=== PATIENT | male | born 1975 | race Hispanic/Latino ===

== ENCOUNTER 2018-06-23 16:28 | Emergency (ER) | payer OTHER, SELFPAY ==
[2018-06-23 17:44] LABS: Absolute Lymphocytes (CBC) 1.9 K/uL (0.7-4.9); Absolute Monocytes 0.4 K/uL (0.1-1.3); Basophils % 0.5 % (0-1.3); Eosinophils % 1.1 % (0-4.4); Hematocrit 43.9 % (39.6-49.0); Lymphocytes % 34.6 % (15.3-44.8); MPV 8.5 fL (7.6-11.3); Monocytes % 7.8 % (3.3-12.3); RBC Red Blood Cell Count 4.97 M/uL (4.33-5.43)
[2018-06-23 18:39] LABS: ALT/SGPT 42 U/L (12-78); AST/SGOT 17 U/L (15-37); Albumin 3.7 g/dL (3.4-5.0); BUN Blood Urea Nitrogen 10 mg/dL (7-18); Bicarbonate 28 mmol/L (21-32); Bilirubin Direct < 0.1 mg/dL (0-0.2); Glucose Level 92 mg/dL (74-106); Lipase 127 U/L (73-393); Potassium 4.3 mmol/L (3.5-5.1); Sodium Level 142 mmol/L (136-145)
[2018-06-23 18:40] LABS: Alkaline Phosphatase 98 U/L (45-117); Bilirubin Total 0.3 mg/dL (0.2-1.0); Protein, Total 7.7 g/dL (6.4-8.2)
--- NOTE | 2018-06-23 19:11 | RAD REPORT ---
EXAM DESCRIPTION: CTAbdomen Pelvis W Contrast - 06/23/2018 6:59 pm CLINICAL HISTORY: Abdominal pain. ABD PAIN COMPARISON: No comparisons TECHNIQUE: Biphasic CT imaging of the abdomen and pelvis was performed with 100 ml non-ionic IV cont rast. All CT scans are performed using dose optimization technique as appropriate and may include automated exposure control or mA/KV adjustment according to patient size. FINDINGS: The lung bases are clear. The liver, spleen, pancreas, adrenal glands and kidneys are within normal limits. No bowel obstruction, free air, free fluid or abscess. The appendix is normal. No evidence of signi ficant lymphadenopathy. No suspicious bony findings. IMPRESSION: No acute intra-abdominal or pelvic finding.
--- NOTE | 2018-06-23 19:57 | EDPHYS ---
Physician Documentation [facility] Name: Kulwinder Rivera Age: 42 yrs Sex: Male : 1975 Arrival Date: 06/23/2018 Time: 16:31 Bed 23 Private MD: ED Physician Feliberto Romo HPI: 06/23 18:14 This 42 yrs old Male presents to ER via Ambulatory with complaints of gs Abdominal Pain. 18:14 The patient presents with abdominal pain that is diffuse. Onset: The symptoms/episode gs began/occurred 6 month(s) ago. Associated signs and symptoms: Pertinent negatives: nausea and vomiting, diarrhea. The symptoms are described as crampy. Modifying factors: The symptoms are alleviated by nothing, the symptoms are aggravated by nothing. Severity of pain: At its worst the pain was moderate in the emergency department the pain is unchanged. The patient has experienced similar episodes in the past, chronically. The patient has not recently seen a physician. Historical: - Allergies: 17:12 No Known Allergies; la1 - Home Meds: 17:12 None [Active]; la1 - PMHx: 17:12 None; la1 - PSHx: 17:12 None; la1 - Immunization history:: Adult Immunizations up to date. - Social history:: Smoking status: Patient/guardian denies using tobacco. - Ebola Screening: : No symptoms or risks identified at this time. ROS: 18:14 All other systems are negative. gs Exam: 18:14 Head/Face: Normocephalic, atraumatic. Eyes: Pupils equal round and reactive to light, gs extra-ocular motions intact. Lids and lashes normal. Conjunctiva and sclera are non-icteric and not injected. Cornea within normal limits. Periorbital areas with no swelling, redness, or edema. ENT: Nares patent. No nasal discharge, no septal abnormalities noted. Tympanic membranes are normal and external auditory canals are clear. Oropharynx with no redness, swelling, or masses, exudates, or evidence of obstruction, uvula midline. Mucous membranes moist. Neck: Trachea midline, no thyromegaly or masses palpated, and no cervical lymphadenopathy. Supple, full range of motion without nuchal rigidity, or vertebral point tenderness. No Meningismus. Chest/axilla: Normal chest wall appearance and motion. Nontender with no deformity. No lesions are appreciated. Cardiovascular: Regular rate and rhythm with a normal S1 and S2. No gallops, murmurs, or rubs. Normal PMI, no JVD. No pulse deficits. Respiratory: Lungs have equal breath sounds bilaterally, clear to auscultation and percussion. No rales, rhonchi or wheezes noted. No increased work of breathing, no retractions or nasal flaring. Back: No spinal tenderness. No costovertebral tenderness. Full range of motion. Skin: Warm, dry with normal turgor. Normal color with no rashes, no lesions, and no evidence of cellulitis. MS/ Extremity: Pulses equal, no cyanosis. Neurovascular intact. Full, normal range of motion. Neuro: Awake and alert, GCS 15, oriented to person, place, time, and situation. Cranial nerves II-XII grossly intact. Motor strength 5/5 in all extremities. Sensory grossly intact. Cerebellar exam normal. Normal gait. 18:14 Constitutional: The patient appears alert, awake. 18:14 Abdomen/GI: Palpation: mild abdominal tenderness, in all quadrants, rebound tenderness, is not appreciated. Vital Signs: 17:11 BP 133 / 90; Pulse 84; Resp 16; Temp 98.4; Pulse Ox 98% on R/A; Weight 108.86 kg; la1 Height 6 ft. 0 in. (182.88 cm); Pain 5/10; 20:05 BP 137 / 74; Pulse 81; Resp 16; Pulse Ox 98% on R/A; la1 17:11 Body Mass Index 32.55 (108.86 kg, 182.88 cm) la1 MDM: 17:22 Patient medically screened. gs 18:14 Differential diagnosis: cholecystitis, diverticulitis, non-specific abd pain, gs pancreatitis, Peptic Ulcer Disease. Data reviewed: vital signs, nurses notes, lab test result(s), radiologic studies. Response to treatment: the patient's symptoms have mildly improved after treatment. 19:56 Counseling: I had a detailed discussion with the patient and/or guardian regarding: the kb historical points, exam findings, and any diagnostic results supporting the discharge/admit diagnosis, lab results, radiology results, the need for outpatient follow up, a family practitioner, a senior executive assistant, to return to the emergency department if symptoms worsen or persist or if there are any questions or concerns that arise at home. 06/23 17:26 Order name: Basic Metabolic Panel 06/23 17: Order name: CBC with Diff; Complete Time: 19:00 06/23 17: Order name: Hepatic Function; Complete Time: 19:00 06/23 17: Order name: Lipase; Complete Time: 19:00 06/23 17:26 Order name: CT Abd/Pelvis - W/Contrast; Complete Time: 19:45 06/23 17:27 Order name: Basic Metabolic Panel; Complete Time: 19:00 EDFL 06/23 17: Order name: IV Saline Lock; Complete Time: 17:39 06/23 17: Order name: Labs collected and sent; Complete Time: 17:39 Administered Medications: No medications were administered Disposition: 06/23/18 19:56 Discharged to Home. Impression: Generalized abdominal pain. - Condition is Stable. - Discharge Instructions: Abdominal Pain, Adult, [id number]. - Prescriptions for Bentyl 20 mg Oral Tablet - take 1 tablet by ORAL route every 6 hours As needed; 20 tablet. - Medication Reconciliation Form, Thank You Letter, Antibiotic Education, Prescription Opioid Use, Work release form form. - Follow up: Private Physician; When: 2 - 3 days; Reason: Recheck today's complaints, Continuance of care, Re-evaluation by your physician. Follow up: Emergency Department; When: As needed; Reason: Worsening of condition. Signatures: Dispatcher [employer] EDFL Racheal Lombardi, MUSHROOM CUTTER-C MUSHROOM CUTTER-Ckb Tyson Arvizu PA PA jmm Attema, Lee, RN RN la1 Feliberto Romo MD MD Corrections: (The following items were deleted from the chart) 20:06 19:56 06/23/2018 19:56 Discharged to Home. Impression: Generalized abdominal pain. la1 Condition is Stable. Forms are Medication Reconciliation Form, Thank You Letter, Antibiotic Education, Prescription Opioid Use. Follow up: Private Physician; When: 2 - 3 days; Reason: Recheck today's complaints, Continuance of care, Re-evaluation by your physician. Follow up: Emergency Department; When: As needed; Reason: Worsening of condition. kb
--- NOTE | 2018-06-23 19:57 | ER ---
Nurse's Notes [facility] Name: Kulwinder Rivera Age: 42 yrs Sex: Male : 1975 Arrival Date: 06/23/2018 Time: 16:31 Bed 23 Private MD: Diagnosis: Generalized abdominal pain Presentation: 06/23 17:10 Presenting complaint: Patient states: LLQ/RUQ abd pain for greater than one year, pt la1 states that pain is a little worse today, denies N/V/D or fevers. Has not taken any medications at home. Transition of care: patient was not received from another setting of care. Onset of symptoms was June 23, 2018. Risk Assessment: Do you want to hurt yourself or someone else? Patient reports no desire to harm self or others. Initial Sepsis Screen: Does the patient meet any 2 criteria? No. Patient's initial sepsis screen is negative. Does the patient have a suspected source of infection? No. Patient's initial sepsis screen is negative. Care prior to arrival: None. 17:10 Method Of Arrival: Ambulatory la1 17:10 Acuity: RAMONA 3 la1 Historical: - Allergies: 17:12 No Known Allergies; la1 - Home Meds: 17:12 None [Active]; la1 - PMHx: 17:12 None; la1 - PSHx: 17:12 None; la1 - Immunization history:: Adult Immunizations up to date. - Social history:: Smoking status: Patient/guardian denies using tobacco. - Ebola Screening: : No symptoms or risks identified at this time. Screenin:12 Abuse screen: Denies threats or abuse. Nutritional screening: No deficits noted. la1 Tuberculosis screening: No symptoms or risk factors identified. Fall Risk None identified. Assessment: 17:13 General: Appears in no apparent distress. Behavior is calm, cooperative. Pain: la1 Complains of pain in right upper quadrant and left lower quadrant Pain currently is 5 out of 10 on a pain scale. Neuro: Level of Consciousness is awake, alert, obeys commands, Oriented to person, place, time, situation. Cardiovascular: Capillary refill < 3 seconds Patient's skin is warm and dry. Respiratory: Airway is patent Respiratory effort is even, unlabored, Respiratory pattern is regular, symmetrical, Breath sounds are clear bilaterally. GI: Abdomen is round non-distended, Bowel sounds present X 4 quads. Abd is soft and non tender X 4 quads. : No signs and/or symptoms were reported regarding the genitourinary system. 18:46 Reassessment: Patient appears in no apparent distress at this time. No changes from la1 previously documented assessment. Patient and/or family updated on plan of care and expected duration. Pain level reassessed. Patient is alert, oriented x 3, equal unlabored respirations, skin warm/dry/pink. 19:44 Reassessment: Patient appears in no apparent distress at this time. No changes from la1 previously documented assessment. Patient and/or family updated on plan of care and expected duration. Pain level reassessed. Patient is alert, oriented x 3, equal unlabored respirations, skin warm/dry/pink. 20:05 Reassessment: Patient appears in no apparent distress at this time. No changes from la1 previously documented assessment. Patient and/or family updated on plan of care and expected duration. Pain level reassessed. Patient is alert, oriented x 3, equal unlabored respirations, skin warm/dry/pink. Vital Signs: 17:11 BP 133 / 90; Pulse 84; Resp 16; Temp 98.4; Pulse Ox 98% on R/A; Weight 108.86 kg; la1 Height 6 ft. 0 in. (182.88 cm); Pain 5/10; 20:05 BP 137 / 74; Pulse 81; Resp 16; Pulse Ox 98% on R/A; la1 17:11 Body Mass Index 32.55 (108.86 kg, 182.88 cm) la1 ED Course: 16:31 Patient arrived in ED. tw3 17:10 Quincy Valencia, RN is Primary Nurse. la1 17:11 Feliberto Romo MD is Attending Physician. gs 17:11 Tyson Arvizu PA is PHCP. [facility] 17:11 Triage completed. la1 17:12 Arm band placed on right wrist. la1 17:12 Bed in low position. Call light in reach. la1 17:32 Radiology exam delayed due to lab results not completed at this time. (BUN/Creatinine). 17:39 Initial lab(s) drawn, by me, sent to lab. Inserted saline lock: 20 gauge in right lt1 antecubital area, using aseptic technique. 18:59 CT Abd/Pelvis - W/Contrast In Process Unspecified. EDMS 20:06 No provider procedures requiring assistance completed. IV discontinued, intact, la1 bleeding controlled, No redness/swelling at site. Pressure dressing applied. Administered Medications: No medications were administered Outcome: 19:56 Discharge ordered by . ivory 20:06 Discharged to home ambulatory. la1 20:06 Condition: stable 20:06 Discharge instructions given to patient, Instructed on discharge instructions, follow up and referral plans. medication usage, Demonstrated understanding of instructions, follow-up care, medications, Prescriptions given X 1. 20:06 Patient left the ED. la1 Signatures: Dispatcher [employer] EDMS Racheal Lombardi, JEROD-C ACTUARIAL CONSULTANT-Ckb Tyson Arvizu PA PA jmm Hagler, Ervin eh Attema, Lee, RN RN la1 Cande Hinojosa tw3 Feliberto Romo MD MD gs Tran, Cherry lt1
== END 2018-06-23 20:06 | disposition home or self-care (01) ==
LOC: ER 16:28
DX: R10.84 Generalized abdominal pain (principal)
CPT/HCPCS: 36415; 74177; 80048; 80076; 83690; 85025; 99284; Q9967

== ENCOUNTER 2019-07-21 15:26 | Emergency (ER) | payer BC ==
--- NOTE | 2019-07-21 16:08 | EDPHYS ---
Physician Documentation [facility] Name: Kulwinder Rivera Age: 43 yrs Sex: Male : 1975 Arrival Date: 07/21/2019 Time: 15:43 Bed 13 Private MD: ED Physician Daljit Quiñones HPI: 07/20 16:04 This 43 yrs old Male presents to ER via Unassigned with complaints of rn Abdominal Cramping. 16:04 This 43 yrs old Male presents to ER via Unassigned with complaints of medical rn clearance. 16:04 The patient presents with abdominal pain. Onset: The symptoms/episode began/occurred rn this morning. The symptoms do not radiate. Associated signs and symptoms: Pertinent negatives: nausea and vomiting, anorexia, blood in stools, chest pain, fever, shortness of breath, testicular pain, vomiting, vomiting blood. The symptoms are described as crampy. Modifying factors: The symptoms are alleviated by nothing, the symptoms are aggravated by nothing. Severity of pain: At its worst the pain was moderate in the emergency department the pain has resolved. The patient has not experienced similar symptoms in the past. Reports experienced abd cramping this AM, called into work, abd cramping resolved, but cant return to work unless cleared/evaluated. States now asymptomatic. . Historical: - Allergies: 16:19 No Known Allergies; ah - Home Meds: 16:19 None [Active]; ah - PMHx: 16:19 None; ah - PSHx: 16:19 None; - Immunization history:: Adult Immunizations up to date. - Social history:: Smoking status: Patient denies any tobacco usage or history of. Patient uses alcohol, only on a social basis. - Family history:: not pertinent. - Hospitalizations: : No recent hospitalization is reported. ROS: 16:04 Constitutional: Negative for fever, chills, and weight loss, Eyes: Negative for injury, rn pain, redness, and discharge, Neck: Negative for injury, pain, and swelling, Cardiovascular: Negative for chest pain, palpitations, and edema, Respiratory: Negative for shortness of breath, cough, wheezing, and pleuritic chest pain, Abdomen/GI: Negative for abdominal pain, nausea, vomiting, diarrhea, and constipation, Back: Negative for injury and pain, : Negative for injury, bleeding, discharge, and swelling, MS/Extremity: Negative for injury and deformity, Neuro: Negative for headache, weakness, numbness, tingling, and seizure. Exam: 16:04 Constitutional: This is a well developed, well nourished patient who is awake, alert, rn and in no acute distress. Head/Face: Normocephalic, atraumatic. Cardiovascular: Regular rate and rhythm. No pulse deficits. Respiratory: No increased work of breathing, no retractions or nasal flaring. Abdomen/GI: Soft, non-tender Skin: Warm, dry MS/ Extremity: Pulses equal, no cyanosis. Neuro: Awake and alert, GCS 15 Vital Signs: 16:16 BP 139 / 97; Pulse 100; Resp 18; Temp 98.1; Pulse Ox 97% ; Weight 104.33 kg; Height 6 ah ft. 0 in. (182.88 cm); Pain 0/10; 16:16 Body Mass Index 31.19 (104.33 kg, 182.88 cm) ah MDM: 15:58 Patient medically screened. rn 16:04 Differential diagnosis: viral syndrome, gas, nonspecific abd pain. Data reviewed: vital rn signs, nurses notes, and as a result, I will discharge patient. Counseling: I had a detailed discussion with the patient and/or guardian regarding: the historical points, exam findings, and any diagnostic results supporting the discharge/admit diagnosis, the need for outpatient follow up, to return to the emergency department if symptoms worsen or persist or if there are any questions or concerns that arise at home. Special discussion: Based on the patient's Hx, exam, and Dx evaluation, there is no indication for emergent surgery or inpatient Tx. It is understood by the patient/guardian that if the Sx's persist or worsen they need to return immediately for re-evaluation. I discussed with the patient/guardian in detail that at this point there is no indication for admission to the hospital. It is understood, however, that if the symptoms persist or worsen the patient needs to return immediately for re-evaluation. ED course: No abd tenderness, states feels normal, "just needs note". . Administered Medications: No medications were administered Disposition: 07/21/19 16:08 Discharged to Home. Impression: Unspecified abdominal pain. - Condition is Stable. - Discharge Instructions: Abdominal Pain, Adult. - Medication Reconciliation Form, Thank You Letter, Antibiotic Education, Prescription Opioid Use, Work release form form. - Follow up: Private Physician; Reason: Recheck today's complaints, Re-evaluation by your physician. - Problem is new. - Symptoms are resolved. Signatures: Daljit Quiñones MD MD rn BadenShamika RN RN Corrections: (The following items were deleted from the chart) 16:36 16:08 07/21/2019 16:08 Discharged to Home. Impression: Unspecified abdominal pain. Condition is Stable. Forms are Medication Reconciliation Form, Thank You Letter, Antibiotic Education, Prescription Opioid Use. Follow up: Private Physician; Reason: Recheck today's complaints, Re-evaluation by your physician. Problem is new. Symptoms are resolved. rn
--- NOTE | 2019-07-21 16:37 | ER ---
Nurse's Notes [facility] Name: Kulwinder Rivera Age: 43 yrs Sex: Male : 1975 Arrival Date: 07/21/2019 Time: 15:43 Bed 13 Private MD: Diagnosis: Unspecified abdominal pain Presentation: 07/20 16:16 Chief complaint: Patient states: Stomach cramping this morning so he called into work, ah he needs a note to return to work, states that symptoms are gone. Coronavirus screen: Proceed with normal triage. Ebola Screen: No symptoms or risks identified at this time. Initial Sepsis Screen: Does the patient meet any 2 criteria? No. Patient's initial sepsis screen is negative. Does the patient have a suspected source of infection? No. Patient's initial sepsis screen is negative. Risk Assessment: Do you want to hurt yourself or someone else? Patient reports no desire to harm self or others. Onset of symptoms was July 21, 2019. 16:16 Method Of Arrival: Ambulatory 16:16 Acuity: RAMONA 5 Historical: - Allergies: 16:19 No Known Allergies; - Home Meds: 16:19 None [Active]; - PMHx: 16:19 None; - PSHx: 16:19 None; - Immunization history:: Adult Immunizations up to date. - Social history:: Smoking status: Patient denies any tobacco usage or history of. Patient uses alcohol, only on a social basis. - Family history:: not pertinent. - Hospitalizations: : No recent hospitalization is reported. Screenin:35 Abuse screen: Denies threats or abuse. Nutritional screening: No deficits noted. Tuberculosis screening: No symptoms or risk factors identified. Fall Risk None identified. Assessment: 16:15 General: Appears in no apparent distress. Behavior is calm, cooperative. Pain: Denies pain. Neuro: Level of Consciousness is awake, alert, obeys commands. Cardiovascular: Capillary refill < 3 seconds Patient's skin is warm and dry. Respiratory: Airway is patent Respiratory effort is even, unlabored. GI: Bowel sounds present X 4 quads. Abd is soft and non tender Reports cramping, since this morning but has now subsided. Derm: Skin is intact, is healthy with good turgor. Vital Signs: 16:16 BP 139 / 97; Pulse 100; Resp 18; Temp 98.1; Pulse Ox 97% ; Weight 104.33 kg; Height 6 ft. 0 in. (182.88 cm); Pain 0/10; 16:16 Body Mass Index 31.19 (104.33 kg, 182.88 cm) ED Course: 15:43 Patient arrived in ED. fj1 15:57 Daljit Quiñones MD is Attending Physician. rn 16:05 Patient has correct armband on for positive identification. Pulse ox on. NIBP on. 3 16:05 Verbal reassurance given. 3 16:15 Arm band placed on. 16:15 Patient did not have IV access during this emergency room visit. 16:16 Shamika Jefferson, RN is Primary Nurse. 16:18 Triage completed. 16:35 No provider procedures requiring assistance completed. Administered Medications: No medications were administered Outcome: 16:08 Discharge ordered by . rn 16:20 Discharged to home ambulatory. 16:20 Condition: good 16:20 Discharge instructions given to patient, Instructed on discharge instructions, follow up and referral plans. 16:36 Patient left the ED. Signatures: Daljit Quiñones MD MD rn Bam Nelson 3 Baldemar Aguilar 1 Shamika Jefferson, RN RN
[2019-07-21 16:44] VITALS: BP 139/97; TEMP 98.1; O2SAT 97
== END 2019-07-21 16:36 | disposition home or self-care (01) ==
LOC: ER 15:26
DX: R10.9 Unspecified abdominal pain (principal)
CPT/HCPCS: 99283